=== PATIENT | female | born 1955 | race Caucasian/White ===

== ENCOUNTER → 2016-11-26 | Outpatient (CLI) | payer OTHER, MEDICAID ==
--- NOTE | 2016-11-26 14:23 | DX ---
PA AND LATERAL CHEST NOVEMBER 26, 2016 INDICATION: Positive PPD. COMPARISON: August 04, 2011. FINDINGS: There is residual scar in the right midlung. There is minimal blunting of bilateral costoph renic angles, representing either scar or minimal residual pleural effusion. There is significant imp rovement in bilateral pulmonary edema and previously present consolidation and pleural effusions, car diogenic source presumed. Patient is status post aortic valve replacement. Thoracolumbar scoliosis is unchanged. No acute consolidation at this time. Bones are stable. IMPRESSIONS: 1. No acute cardiopulmonary process at this time. 2. Residual mild amount of scar in the right midlung. 3. Stable scoliosis and post valvular replacement surgery findings.
== END ==
LOC: FIMAGING 13:41
PROVIDERS: ATTEND Physician Assistant
DX: R76.11 Nonspecific reaction to tuberculin skin test without active tuberculosis (principal); Z95.2 Presence of prosthetic heart valve

== ENCOUNTER → 2017-11-30 | Outpatient (CLI) | payer OTHER, MEDICAID | LOC: FIMAGING 09:54 | PROVIDERS: ATTEND Family Medicine | DX: Z11.1 Encounter for screening for respiratory tuberculosis (principal) ==

== ENCOUNTER 2018-02-18 19:01 | Inpatient (IN) | payer OTHER, MEDICAID ==
[2018-02-18] MEDS ORDERED: IPRATROPIUM/ALBUTEROL 3 ML DEYVIAL IH ONE (19:24)
[2018-02-18] MEDS ORDERED: methylPREDNISolone SOD SUCC 125 MG/2 ML VIAL IVP ONE (19:24)
[2018-02-18] MEDS ORDERED: NS 1,000 ML IV ONE (19:24)
[2018-02-18] MEDS ORDERED: ALBUTEROL 3 ML DEYVIAL IH ONE (19:24)
--- NOTE | 2018-02-18 19:25 | EDPHY ---
H & P Time Seen by Provider: 02/18/18 19:18 HPI/ROS: CHIEF COMPLAINT: Lethargy and drowsy HISTORY OF PRESENT ILLNESS: Patient was brought in by EMS from the group home with decreased level of alertness. Patient has had a previous stroke with right -sided deficits and some slurred speech which the patient says are normal. She denies narcotic abuse today. She says she feels okay and has not been coughing and denies shortness of breath or chest pain. No headache or neck pain. No fever or chills. No injury or trauma. Symptoms moderate. Noted to be hypoxemic on arrival. REVIEW OF SYSTEMS: Eye: no change in vision ENT: no sore throat Cardiac: no chest pain or syncope Pulmonary: no cough or SOB Abdomen: no vomiting, diarrhea, abdominal pain Musculoskeletal: no back pain Skin: no rash Neuro: no headache Constitutional: no fever : no urinary symptoms A comprehensive 10 point review of systems is otherwise negative aside from elements mentioned in the history of present illness. PAST MEDICAL HISTORY: Includes stroke with right-sided deficit slurred speech, depression and anxiety. Diabetes and history of endocarditis and mitral valve replacement. Social history: Homeless, denies alcohol, admits continued tobacco smoking. General Appearance: Alert and cooperative. Eyes: No scleral icterus. ENT, Mouth: Normal mucous membranes. Respiratory: Bilateral rhonchi and wheezing, with decreased breath sounds bilaterally. Cardiovascular: Regular rate and rhythm. Gastrointestinal: Abdomen is soft and non tender. Neurological: Alert, follows commands, right arm weaker than left which is baseline, slurred speech at baseline. Skin: Warm and dry, no rashes. Musculoskeletal: No peripheral edema. No calf tenderness. Psychiatric: Not agitated. Emergency Department course/MDM: Patient presents with heart rate of 97, afebrile, but hypoxemic with oxygen saturations in the mid 80s. Plan for DuoNeb and albuterol neb, IV steroids, chest x-ray and labs. At this point I think it is unlikely that she has drug overdose, acute stroke, other acute neurologic problem. Much more likely to be due to her hypoxemia. 2043: Recheck is better on oxygen but still sounds very wheezy. Admit for reactive airway disease exacerbation, nebulizer treatments and steroids. Per radiologist pneumonia would be unlikely. BNP is negative for CHF for ED patient 's. Chest x-ray reviewed with Dr. Plata, he does not think it shows pneumonia. Smoking Status: Current every day smoker Constitutional: Initial Vital Signs Temperature (C) 36.5 C 02/18/18 19:11 Heart Rate 97 02/18/18 19:11 Respiratory Rate 14 02/18/18 19:11 Blood Pressure 129/83 H 02/18/18 19:11 O2 Sat (%) 86 L 02/18/18 19:11 O2 Delivery Mode Nasal Cannula O2 (L/minute) 3 Allergies/Adverse Reactions: No Known Allergies Allergy (Verified 10/10/16 09:32) Home Medications: Medication Instructions Recorded Albuterol [Ventolin Hfa Inhaler] 1 - 2 puffs IH Q4H PRN 12/10/15 Aspirin [Aspirin 81mg (*)] 81 mg PO DAILY 12/10/15 Atorvastatin Calcium [Lipitor 40 40 mg PO DAILY 12/10/15 mg (*)] Levothyroxine [Synthroid 50 mcg 50 mcg PO DAILY06 12/10/15 (*)] Sertraline HCl [Zoloft 100mg (*)] 200 mg PO DAILY 12/10/15 metFORMIN HCL [Glucophage 500 mg 500 mg PO DAILY 12/10/15 (*)] Cyclobenzaprine HCl 10 mg PO TID 04/17/16 Ferrous Sulfate [Ferrous Sulf 325 325 mg PO DAILY 04/17/16 MG (*)] Hydrocodone/Acetaminophen 1 ea PO HS PRN 04/17/16 [Hydrocodone-Acetamin 5-300 mg] Indomethacin 50 mg PO TID 04/17/16 LISINOPRIL 5 mg PO DAILY 04/17/16 Acetaminophen [Tylenol 325mg (*)] 650 mg PO Q4 PRN #0 tab 04/18/16 Cephalexin [Keflex] 500 mg PO QID #28 cap 08/23/16 Medical Decision Making - Diagnostics EKG Interpretation: 12-lead EKG interpreted by me; official reading is in trace master. My interpretation is sinus rhythm rate 95 no ischemic changes. Imaging Results: Imaging Impressions Chest X-Ray 02/18/18 19:24 Impression: Findings most consistent with congestive heart failure are noted, with asymmetric opacity at the left lung base, probably atelectasis rather than pneumonia. Results discussed with Héctor Potter M.D., on February 18, 2018 at 2018. Chest Xray cardiomegaly and pulmonary infiltrates, possible pulmonary edema reviewed with Dr. Plata, 2014. Imaging: Discussed imaging studies w/ call specialist Radiologist, I viewed and interpreted images myself Differential Diagnosis: Differential diagnosis considered for altered mental status including but not limited to hypoglycemia, infectious process, electrolyte abnormality, head injury and intoxicants. Consult/Admit Bed Type: [place] 2049 - Data Points Laboratory Results: Laboratory Results 02/18/18 19:01 02/18/18 19:01 02/18/18 02/18/18 02/18/18 19:24 19:01 19:01 WBC 10.75 10^3/uL H 10^3/uL (3.80-9.50) RBC 5.01 10^6/uL 10^6/uL (4.18-5.33) Hgb 12.3 g/dL L g/dL (12.6-16.3) Hct 40.5 % % (38.0-47.0) MCV 80.8 fL L fL (81.5-99.8) MCH 24.6 pg L pg (27.9-34.1) MCHC 30.4 g/dL L g/dL (32.4-36.7) RDW 15.9 % H % (11.5-15.2) Plt Count 420 10^3/uL H 10^3/uL (150-400) MPV 9.4 fL fL (8.7-11.7) Neut % (Auto) 71.2 % % (39.3-74.2) Lymph % (Auto) 19.8 % % (15.0-45.0) [place] % (Auto) 5.2 % % (4.5-13.0) Eos % (Auto) 2.6 % % (0.6-7.6) Baso % (Auto) 0.7 % % (0.3-1.7) Nucleat RBC Rel Count 0.0 % % (0.0-0.2) Absolute Neuts (auto) 7.66 10^3/uL H 10^3/uL (1.70-6.50) Absolute Lymphs (auto) 2.13 10^3/uL 10^3/uL (1.00-3.00) Absolute Monos (auto) 0.56 10^3/uL 10^3/uL (0.30-0.80) Absolute Eos (auto) 0.28 10^3/uL 10^3/uL (0.03-0.40) Absolute Basos (auto) 0.07 10^3/uL 10^3/uL (0.02-0.10) Absolute Nucleated RBC 0.00 10^3/uL 10^3/uL (0-0.01) Immature Gran % 0.5 % % (0.0-1.1) Immature Gran # 0.05 10^3/uL 10^3/uL (0.00-0.10) Sodium 142 mEq/L mEq/L (135-145) Potassium 4.6 mEq/L mEq/L (3.5-5.2) Chloride 103 mEq/L mEq/L (97-110) Carbon Dioxide 23 mEq/l mEq/l (22-31) Anion Gap 16 mEq/L mEq/L (8-16) BUN 19 mg/dL mg/dL (7-23) Creatinine 1.0 mg/dL mg/dL (0.6-1.0) Estimated GFR 56 Glucose 114 mg/dL H mg/dL (70-100) Calcium 9.3 mg/dL mg/dL (8.5-10.4) Troponin I < 0.012 ng/mL ng/mL (0.000-0.034) NT-Pro-B Natriuret Pep 240 pg/mL H pg/mL (0-125) Medications Given: Discontinued Medications Albuterol (Proventil Neb) 3 ml IH EDNOW ONE Stop: 02/18/18 19:25 Last Admin: 02/18/18 19:33 Dose: 3 ml Albuterol/Ipratropium (Duoneb) 3 ml IH EDNOW ONE Stop: 02/18/18 19:25 Last Admin: 02/18/18 19:33 Dose: 3 ml Sodium Chloride (Ns) 1,000 mls @ 0 mls/hr IV ONCE ONE; Wide Open PRN Reason: Protocol Stop: 02/18/18 19:25 Last Admin: 02/18/18 19:33 Dose: 1,000 mls Methylprednisolone Sodium Succinate (Solu-Medrol) 125 mg IVP EDNOW ONE Stop: 02/18/18 19:25 Last Admin: 04/16/18 19:30 Dose: 125 mg Departure - Departure Disposition: [facility] Inpatient Acute Clinical Impression: Hypoxemia Acute bronchitis Qualifiers: Bronchitis organism: unspecified organism Qualified Code(s): J20.9 - Acute bronchitis, unspecified Condition: Fair
[2018-02-18 19:30] LABS: PLATELET COUNT 420 10^3/uL (150-400)
--- NOTE | 2018-02-18 19:36 | CPEKG ---
Heart Rate: 95 RR Interval: 632 P-R Interval: 208 QRSD Interval: 82 QT Interval: 372 QTC Interval: 468 P [place]: 51 QRS [place]: 46 T Wave [place]: 30 EKG Severity - NORMAL ECG - EKG Impression: SINUS RHYTHM Electronically Signed By: Héctor Potter 18-Feb-2018 19:41:38
[2018-02-18] MEDS ORDERED: ONDANSETRON DISINTEGRATING 4 MG TAB PO PRN (21:13)
[2018-02-18] MEDS ORDERED: ACETAMINOPHEN 325 MG TAB PO PRN (21:13)
[2018-02-18] MEDS ORDERED: ALBUTEROL 3 ML DEYVIAL IH PRN (21:13)
[2018-02-18] MEDS ORDERED: ONDANSETRON 4 MG/2 ML VIAL IVP PRN (21:13)
[2018-02-18] MEDS ORDERED: BENZONATATE 100 MG CAP PO PRN (21:16)
[2018-02-18] MEDS ORDERED: D50W 25 GM/50 ML VIAL IVP PRN (21:30)
[2018-02-18] MEDS: AZITHROMYCIN 250 MG TAB PO SCH (21:58)
--- NOTE | 2018-02-18 22:09 | GHP ---
[f rep st] HISTORY AND PHYSICAL DATE OF ADMISSION: 02/18/2018 CHIEF COMPLAINT: Shortness of breath and lethargy. HISTORY OF PRESENT ILLNESS: The patient is a 63-year-old female, with a history of prior stroke, MRSA endocarditis, subsequent mitral valve replacement , and history of IV drug abuse, who presents to the emergency department after she was [facility] in a [facility] the [facility]. She is overall a poor historian. Upon arrival, she was hypoxic at 86% on room air. She endorses 2 days of cough, wheezing, and shortness of breath. Her cough is wet but nonproductive. She denies fevers or chills. She denies chest pain, orthopnea or paroxysmal nocturnal dyspnea. She has residual aphasia and right-sided weakness secondary to her previous stroke, which was in the setting of endocarditis. She denies recent drug use. She continues to smoke cigarettes. She denies any prior history of asthma or COPD. In the emergency department, she was given a nebulizer treatment, a liter of normal saline, and 125 mg of IV methylprednisolone. She is admitted to the hospital for further management. PAST MEDICAL/SURGICAL HISTORY: 1. 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 2. 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 3. MRSA endocarditis. 4. History of IV drug abuse. 5. Depression. 6. OCD. 7. Tobacco abuse. MEDICATIONS: Please see [facility] for completed outpatient medication list. ALLERGIES: She has no known drug allergies. FAMILY HISTORY: Reviewed and noncontributory. SOCIAL HISTORY: Patient is homeless and [facility] at the [facility]. She maintains ongoing sobriety for IV drug abuse. She denies alcohol. REVIEW OF SYSTEMS: A 10-point review of systems was performed and was negative except as per HPI. OBJECTIVE: VITAL SIGNS: Temperature 37.7, blood pressure 120/87, heart rate 89 , respiratory rate 18. She is 97% on 3 L. GENERAL: The patient is awake, alert, and oriented, in no acute distress. HEENT: Head is atraumatic, normocephalic. Pupils equal, round, and reactive to light. Extraocular muscles intact. Oropharynx is clear. Mucous membranes are dry. NECK: Supple. There is no JVD. HEART: Regular rate and rhythm with 2/6 systolic ejection murmur. LUNGS: Decreased air exchange with marked rhonchi and expiratory wheezes. ABDOMEN: Soft, nondistended, nontender, with normoactive bowel tones. EXTREMITIES: Without cyanosis, clubbing, or edema. NEUROLOGIC: She has a baseline aphasia with slight weakness on the right side, also baseline. LABORATORY DATA: CBC reveals a white blood cell count of 10.75, hemoglobin 12.3 , platelets 420. Basic metabolic panel shows normal electrolytes. Creatinine of 1.0, blood glucose 114. Troponin is negative. NT proBNP 240. Procalcitonin and D-dimer are pending. Chest x-ray is personally reviewed and interpreted. Cardiomegaly is noted. Peribronchial cuffing and vague airspace disease. EKG shows normal sinus rhythm with no ST-segment or T-wave changes concerning for acute ischemia. ASSESSMENT AND PLAN: The patient is a 63-year-old female, with a history of prior stroke, endocarditis, and IV drug abuse, who presents to the emergency department with shortness of breath and hypoxemia. 1. Acute hypoxemic respiratory failure. Suspect reactive airway disease, possibly in the setting of a viral infection. There is no prior diagnosis of chronic obstructive pulmonary disease, though given her tobacco history, will treat for possible chronic obstructive pulmonary disease exacerbation with DuoNeb, p.r.n. albuterol nebs, IV Solu-Medrol, and azithromycin for its anti- inflammatory effect. With her diffuse wheezing, hypoxemia, and tachycardia, will send a D-dimer and if positive, proceed with CTA to rule out pulmonary embolism. I will also check a procalcitonin, though I think bacterial pneumonia is less likely. A respiratory pathogen panel is ordered to evaluate for viral etiologies, and we will provide supportive care with guaifenesin and antitussives. Her clinical picture is not consistent with heart failure with a low BNP and no obvious signs of volume overload. 2. History of cerebrovascular accident. She has baseline aphasia and right- sided weakness. Will continue her aspirin and statin once her medication reconciliation is completed. 3. History of IV drug abuse. Send urine drug screen. 4. 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 An echo was ordered to evaluate her valve status in the setting of respiratory failure. 5. Diabetes mellitus type 2. Will hold metformin in the event she requires contrast-enhanced imaging. Low-dose sliding scale insulin for glycemic control. 6. Tobacco abuse. Consider Nicoderm. 7. Homelessness. Case Management consult is requested. 8. Code status: Patient is full code. 9. Deep vein thrombosis prophylaxis, Lovenox. DISPOSITION: Patient admitted to inpatient status. Anticipate she will require greater than 48 hours hospitalization for ongoing management of her acute hypoxemic respiratory failure. /[id number]/MODL MTDD
[2018-02-18] MEDS ORDERED: IOPAMIDOL (ISOVUE 370) 100 ML BTL IV ONE (22:24)
[2018-02-18] MEDS: methylPREDNISolone SOD SUCC 125 MG/2 ML VIAL IVP SCH (23:27)
[2018-02-19] MEDS ORDERED: CYCLOBENZAPRINE 10 MG TAB PO PRN ×2 (04:15→11:24)
[2018-02-19] MEDS: IPRATROPIUM/ALBUTEROL 3 ML DEYVIAL IH SCH ×4 (05:37→20:49)
[2018-02-19] MEDS: methylPREDNISolone SOD SUCC 125 MG/2 ML VIAL IVP SCH ×4 (06:08→23:58)
[2018-02-19] MEDS: AZITHROMYCIN 250 MG TAB PO SCH (08:25)
[2018-02-19] MEDS: INSULIN LISPRO 100 UNIT/ML SC SCH ×3 (08:25→18:12)
[2018-02-19] MEDS: guaiFENesin 600 MG TAB.ER PO SCH ×3 (08:25→20:04)
[2018-02-19] MEDS: ENOXAPARIN 40 MG/0.4 ML SYR SC SCH (08:26)
[2018-02-19] MEDS: NICOTINE 14 MG/24 HR PATCH TD SCH (08:26)
--- NOTE | 2018-02-19 10:29 | ECHO ---
[email or web address] [address] [address] Main: [phone] Fax: [email or web address] Echocardiogram Name: JUANA GAMBLE MR#: [id number] Study Date: 02/19/2018 Study Time: 07:42 AM Date of : 1955 Age: 63 year(s) Height: 162.6 cm (64 in.) Weight: 65.32 kg (144 lb.) BSA: 1.7 m2 Gender: Female Examination: Echo Indication: hypoxemia, Shortness of breath, h/o MVR Image Quality: Adequate Contrast: Requested by: Valeri Guerra BP: 112 mmHg/74 mmHg Heart Rate: 105 bpm Rhythm: Indication: hypoxemia, Shortness of breath, h/o MVR Procedure Staff Machine Adjuster Leader: Teresa Moss [facility] Reading Physician: Dustin Aparicio MD Requesting Provider: Conclusions: Normal size left ventricle. No LV hypertrophy. Normal global systolic LV function. EF is 70 %. No regional wall motion abnormality. Normal RV function. The left atrium is normal in size. The right atrium is normal in size. A bioprothetic mitral valve is in place. The mitral valve prosthesis is stenotic. The prosthetic mitral valve exhibits slightly thickened cusps. Mean grdient 21mmHg which is significantly higher than previous 10-08-2014 6.4mmHg. No MV prosthesis regurgitation. The aortic valve is tri-leaflet and functions normally. There is no aortic valve regurgitation. No aortic valve stenosis is present. The tricuspid valve is normal in appearance and function. Moderate tricuspid regurgitation is present. Right ventricular systolic pressure measures 45mmHg. The pulmonic valve is normal in appearance and function. Trivial pulmonic valve regurgitation. Measurements: Chambers Valvular Assessment AV/MV Valvular Assessment TV/PV Normal Normal Normal Name Value Range Name Value Range Name Value Range Ao Sarah (MM): 2.8 cm (2.2 cm-3.7 AV Vmax: 1.89 m/s (1 m/s-1.7 TR Vmax: 3.15 mm/s ( - ) cm) m/s) TR PGmax: 40 mmHg ( - ) AV maxP mmHg ( - ) syst. PAP: 45 mmHg ( - ) Patient: JUANA GAMBLE Study Date: 02/19/2018 Page 1 of 3 07:42 AM IVSd (2D): 1.0 cm (0.6 cm-1.1 LVOT Vmax: 1.40 m/s (0.7 m/s-1.1 PV Vmax: 1.17 m/s (0.6 m/s-0.9 cm) m/s) m/s) LVDd (2D): 4.0 cm (3.9 cm-5.3 MV meanP mmHg ( - ) PV PGmax: 5 mmHg ( - ) cm) LVDs (2D): 2.9 cm (2.1 cm-4 cm) LVPWd (2D): 1.0 cm ( - ) LVEF (BP): 70 % (>=55 %) RVDd(2D): 2.6 cm (1.9 cm-3.8 cmmm) Continued Measurements: Chambers Valvular Assessment AV/MV Valvular Assessment TV/PV Name Value Name Value Name Value LADs Lon.5 cm MV VTI: 57.20 cm CVP (est.): 5 mmHg LA Area: 16.8 cm2 LA Volume: 48 ml LA Volume Index: 28.2 ml/m2 TAPSE: 1.8 cm RA Area: 14.0 cm2 Additional Vessels Name Value Ao Ascendin.0 cm Findings: Left Ventricle: Normal size left ventricle. No LV hypertrophy. Normal global systolic LV function. EF is 70 %. No regional wall motion abnormality. Unable to assess diastolic dysfunction. Right Ventricle: Normal size right ventricle. Normal RV function. Left Atrium: The left atrium is normal in size. Right Atrium: The right atrium is normal in size. Mitral Valve: A bioprothetic mitral valve is in place. The mitral valve prosthesis is stenotic. The prosthetic mitral valve exhibits slightly thickened cusps. Mean grdient 21mmHg which is significantly higher than previous 10-08-2014 6.4mmHg. No MV prosthesis regurgitation. Aortic Valve: The aortic valve is tri-leaflet and functions normally. There is no aortic valve regurgitation. No aortic valve stenosis is present. Tricuspid Valve: The tricuspid valve is normal in appearance and function. Moderate tricuspid regurgitation is present. Right ventricular systolic pressure measures 45mmHg. The pulmonary artery pressure is moderately increased. Pulmonic Valve: The pulmonic valve is normal in appearance and function. Trivial pulmonic valve regurgitation. Aorta: The aorta is normal. Normal size aortic root measuring 2.8 cm. Normal size ascending aorta measuring 3.0 cm. IVC: The IVC is normal sized. Pericardium: No pericardial effusion. Patient: JUANA GAMBLE Study Date: 02/19/2018 Page 2 of 3 07:42 AM (No Signature Object) Patient: JUANA GAMBLE Study Date: 02/19/2018 Page 3 of 3 07:42 AM [id number]
--- NOTE | 2018-02-19 13:05 | HOSPPROG ---
Hospitalist Progress Note Assessment/Plan: 63y female with c/o SOB. First encounter, chart reviewed. #AHRF: RAD and possible COPD cont supportive care improved today #Hx CVA at baseline #Elevated D-Dimer CTA negative #Hx IVDA tox pending #Hx MV replacement stable ECHO #DM2 support #Dispo unclear, homeless cont supportive care titrate off O2 D/W CM Subjective: Still feels SOB. Eating. Coughing. Objective: Vital Signs Temp Pulse Resp BP Pulse Ox 37.1 C 115 H 18 110/60 92 02/19/18 11:07 02/19/18 11:07 02/19/18 11:07 02/19/18 11:07 02/19/18 11:07 Microbiology 02/18/18 21:13 Respiratory Panel (PCR) - Final Nasal, Sinus - Swab No Organism Detected 02/18/18 02/19/18 02/20/18 05:59 05:59 05:59 Output Total 0 Balance 0 - Physical Exam Constitutional: appears nourished, not in pain, chronically ill appearing Eyes: PERRL, anicteric sclera, EOMI Ears, Nose, Mouth, Throat: moist mucous membranes, hearing normal, ears appear normal Cardiovascular: tachycardia, No JVD, No edema Respiratory: no respiratory distress, reduced air movement, expiratory wheeze Gastrointestinal: No tenderness, No ascites, No guarding Skin: warm, normal color, No mottled Musculoskeletal: normal joint ROM, no joint effusions, generalized weakness Neurologic: AAOx3 Psychiatric: not anxious, not encephalopathic, poor insight, poor judgement, poor memory ICD10 Worksheet Patient Problems: Problems Problem Status Onset History of CVA (cerebrovascular accident) Acute Hematoma Acute Knee pain Acute Hypoxemia Acute Acute bronchitis Acute
--- NOTE | 2018-02-19 14:20 | PDMN ---
Medical Necessity Medical necessity: Pt meets IP criteria per MD; est los >2 mn for eval/tx of acute hypoxemic respiratory failure; admit for further workup/monitoring, respiratory supportive care, IV Solu-Medrol & therapy; hx CVA w/residual aphasia & R-sided weakness, mitral valve replacement, IV drug use, homelessness , diabetes; per H&P & order 02/18/18
--- NOTE | 2018-02-19 14:54 | ASMTCASEMG ---
Living Arrangements What is your living Answers: Alone arrangement? Who do you live with? Type Of Residence What kind of residence do Answers: Homeless you live in? Discharge Plan Comments Coordination Status Comments Notes: Pt is 63 y/o female admitted for bronchitis and hypoxemia. CM attempted to meet w/ pt for dispo planning but pt was asleep. PT has been ordered and awaiting recommendations. Needs are TBD at this time. CM to follow. Plan: TBD Date Signed: 02/19/2018 02:48 PM Electronically Signed By:JELENA Phillips
[2018-02-20] MEDS: methylPREDNISolone SOD SUCC 125 MG/2 ML VIAL IVP SCH ×2 (05:31→13:03)
[2018-02-20] MEDS: IPRATROPIUM/ALBUTEROL 3 ML DEYVIAL IH SCH ×2 (05:46→10:40)
[2018-02-20] MEDS ORDERED: LEVOTHYROXINE 50 MCG TAB PO SCH (06:00)
[2018-02-20 07:21] VITALS: BP 124/81
[2018-02-20] MEDS: INSULIN LISPRO 100 UNIT/ML SC SCH ×2 (07:24→13:02)
[2018-02-20] MEDS: AZITHROMYCIN 250 MG TAB PO SCH (08:26)
[2018-02-20] MEDS: ENOXAPARIN 40 MG/0.4 ML SYR SC SCH (08:27)
[2018-02-20] MEDS: NICOTINE 14 MG/24 HR PATCH TD SCH (08:29)
[2018-02-20] MEDS: guaiFENesin 600 MG TAB.ER PO SCH (08:41)
[2018-02-20] MEDS ORDERED: SERTRALINE HCL 100 MG TAB PO SCH (09:00)
[2018-02-20] MEDS ORDERED: LISINOPRIL 5 MG TAB PO SCH (09:00)
[2018-02-20] MEDS ORDERED: ASPIRIN 81 MG CHEWABLE TAB PO SCH (09:00)
[2018-02-20] MEDS ORDERED: ATORVASTATIN CALCIUM 40 MG TAB PO SCH (09:00)
[2018-02-20] MEDS ORDERED: ATOMOXETINE HCL 100 MG PO SCH ×2 (09:00)
--- NOTE | 2018-02-20 09:46 | ASMTLACE ---
LEIG[facility] Length of stay for Answers: 2 days current admission Acuity / Level of Answers: Yes Care: Did the patient have an inpatient admission? Comorbidities - select Answers: Cerebrovascular disease all that apply (CVA, TIA, aneurysms, vasc ular dementia) # of Emergency department Answers: 3-4 visits in the last 6 months Social determinants Answers: History of substance abuse (ETOH, street drugs, prescription drugs, etc.) Homelessness (street, senior care) Mental health diagnosis (anxiety, depression, pers onality disorders, etc.) Score: 18 Date Signed: 02/20/2018 09:46 AM Electronically Signed By:JELENA Phillips
--- NOTE | 2018-02-20 09:47 | ASMTCAGE ---
CAGE Do you feel you ought to Answers: Yes cut down on your drinking or drug use? Do people annoy you by Answers: No criticizing your drinking or drug use? Do you feel guilty about Answers: Yes your drinking or drug use? Do you drink or use drugs Answers: No first thing in the morning ([employer])? Date Signed: 02/20/2018 09:46 AM Electronically Signed By:JELENA Phillips
--- NOTE | 2018-02-20 14:51 | GDS ---
[f rep st] DISCHARGE SUMMARY DISCHARGE DIAGNOSES: 1. Acute hypoxemic respiratory failure. 2. Reactive airway disease. 3. History of cerebrovascular accident. 4. Diabetes mellitus, type 2. PHYSICAL EXAMINATION: GENERAL: The patient is alert. VITAL SIGNS: Afebrile at 37; pulse is 87; re spiratory rate 16; blood pressure is 124/81. She is saturating at 93% on room air. I have seen and evaluated the patient on the day of discharge. HOSPITAL COURSE: Patient is a 63-year-old female who presented to the emergency room with complaints of shortness of breath. She was evaluated and diagnosed with: 1. Acute hypoxemic respiratory failure. The etiology of this is multifactorial. The patient has be en treated with oral azithromycin, as well as steroids. She has responded well. She is tolerating r oom air and not requiring supplemental oxygen at the time of disposition. 2. History of cerebrovascular accident. She is at her baseline with regard to this. 3. History of IV drug use. The patient does not appear to be using drugs at this time. 4. Diabetes mellitus. This is stable. DISPOSITION: The patient will be discharged to return to the homeless skilled nursing where she has been res iding. I have reviewed her disposition with Case Management, as well as the patient. She has been p rovided supportive measures that are available to her. DISCHARGE MEDICATIONS: Please refer to EMR form. I have provided the patient a prescription for trae thromycin, as well as prednisone. There are no pending studies. TIME: I spent greater than 35 minutes in the care, coordination, and management of the patient's dis position. /[id number]/MODL
[2018-02-20] MEDS ORDERED: QUEtiapine FUMARATE 100 MG TAB PO SCH (21:00)
== END 2018-02-20 13:46 | disposition home or self-care (01) | DRG 189 ==
LOC: EDUNIT# → F3E 21:34
PROVIDERS: ADMIT Hospitalist; ATTEND Hospitalist
DX: J96.01 Acute respiratory failure with hypoxia (principal); J45.909 Unspecified asthma, uncomplicated; E11.9 Type 2 diabetes mellitus without complications; Z66 Do not resuscitate; Z86.73 Personal history of transient ischemic attack (TIA), and cerebral infarction without residual deficits; Z95.4 Presence of other heart-valve replacement; Z79.84 Long term (current) use of oral hypoglycemic drugs; Z72.0 Tobacco use
CPT/HCPCS: 80307; 96374; 97161-GP; G0480; G8978-GP-CJ; G8979-GP-CI; J1650; J1815; J2930; J7613; Q9967